=== PATIENT | female | born 1955 | race Caucasian/White ===

== ENCOUNTER 2020-09-27 22:36 | Emergency (ER) | payer OTHER ==
[2020-09-27] MEDS ORDERED: ONDANSETRON 4 MG/2 ML VIAL ONE (23:38)
[2020-09-27] MEDS ORDERED: MORPHINE 4 MG/ML SYR ONE (23:38)
--- NOTE | 2020-09-28 00:39 | EDPHYS ---
Physician Documentation [facility] Name: Daniela Anthony Age: 65 yrs Sex: Female : 1955 Arrival Date: 09/27/2020 Time: 22:39 Bed 26 Private MD: ED Physician Shailesh Ashby HPI: 09/27 23:25 This 65 yrs old Female presents to ER via EMS with complaints of Fall Injury. mh7 23:25 Details of fall: The patient fell from a height, down approximately 3 stairs. Onset: mh7 The symptoms/episode began/occurred just prior to arrival, today. Associated injuries: The patient sustained right shoulder, decreased range of motion, painful injury. Severity of symptoms: At their worst the symptoms were moderate, earlier today, in the emergency department the symptoms are unchanged. Historical: - Allergies: 22:43 tramadol; em - PMHx: 22:43 Diabetes - NIDDM; Cirrhosis; em - PSHx: 22:43 Hysterectomy; ; em - Immunization history:: Adult Immunizations. - Immunization history: Last tetanus immunization: - up to date. - Social history:: Smoking status: Patient denies any tobacco usage or history of. ROS: 23:25 Constitutional: Negative for fever, chills, and weight loss, Eyes: Negative for injury, mh7 pain, redness, and discharge, ENT: Negative for injury, pain, and discharge, Neck: Negative for injury, pain, and swelling, Cardiovascular: Negative for chest pain, palpitations, and edema, Respiratory: Negative for shortness of breath, cough, wheezing, and pleuritic chest pain, Abdomen/GI: Negative for abdominal pain, nausea, vomiting, diarrhea, and constipation, Back: Negative for injury and pain, : Negative for injury, bleeding, discharge, and swelling, Skin: Negative for injury, rash, and discoloration, Neuro: Negative for headache, weakness, numbness, tingling, and seizure, Psych: Negative for depression, anxiety, suicide ideation, homicidal ideation, and hallucinations, Allergy/Immunology: Negative for hives, rash, and allergies, Endocrine: Negative for neck swelling, polydipsia, polyuria, polyphagia, and marked weight changes, Hematologic/Lymphatic: Negative for swollen nodes, abnormal bleeding, and unusual bruising. Exam: 23:25 Constitutional: This is a well developed, well nourished patient who is awake, alert, mh7 and in no acute distress. Head/Face: Normocephalic, atraumatic. Eyes: Pupils equal round and reactive to light, extra-ocular motions intact. Lids and lashes normal. Conjunctiva and sclera are non-icteric and not injected. Cornea within normal limits. Periorbital areas with no swelling, redness, or edema. Neck: Trachea midline, no thyromegaly or masses palpated, and no cervical lymphadenopathy. Supple, full range of motion without nuchal rigidity, or vertebral point tenderness. No Meningismus. Chest/axilla: Normal chest wall appearance and motion. Nontender with no deformity. No lesions are appreciated. Cardiovascular: Regular rate and rhythm with a normal S1 and S2. No gallops, murmurs, or rubs. Normal PMI, no JVD. No pulse deficits. Respiratory: Lungs have equal breath sounds bilaterally, clear to auscultation and percussion. No rales, rhonchi or wheezes noted. No increased work of breathing, no retractions or nasal flaring. Abdomen/GI: Soft, non-tender, with normal bowel sounds. No distension or tympany. No guarding or rebound. No evidence of tenderness throughout. Back: No spinal tenderness. No costovertebral tenderness. Full range of motion. Skin: Warm, dry with normal turgor. Normal color with no rashes, no lesions, and no evidence of cellulitis. 23:25 Neuro: Awake and alert, GCS 15, oriented to person, place, time, and situation. Cranial nerves II-XII grossly intact. Motor strength 5/5 in all extremities. Sensory grossly intact. Cerebellar exam normal. Normal gait. Psych: Awake, alert, with orientation to person, place and time. Behavior, mood, and affect are within normal limits. 23:25 Musculoskeletal/extremity: Extremities: noted in the right shoulder: decreased ROM, pain, tenderness, ROM: limited active range of motion, in the right shoulder, limited passive range of motion, in the right shoulder, Circulation is intact in all extremities. Sensation intact. Compartment Syndrome exam of affected extremity: is normal. no numbness, no tingling, no sensation deficit, no palor, no weak pulses, Joints: the right shoulder displays limited range of motion, pain at rest, painful range of motion, tenderness, Weight bearing: able to fully bear weight, without difficulty, Tendon exam: specific tendon testing normal through active and passive range of motion Vital Signs: 22:39 BP 129 / 72; Pulse 83; Resp 18; Pulse Ox 97% on R/A; Weight 75.75 kg; Height 5 ft. 5 em in. (165.10 cm); Pain 01/12; 09/28 00:56 BP 124 / 70; Pulse 80; Resp 17; Pulse Ox 98% on R/A; mh5 09/27 22:39 Body Mass Index 27.79 (75.75 kg, 165.10 cm) em [place] Coma Score: 09/27 22:39 Eye Response: spontaneous(4). Verbal Response: oriented(5). Motor Response: obeys em commands(6). Total: 15. Trauma Score (Adult): 22:39 Eye Response: spontaneous(1); Verbal Response: oriented(1); Motor Response: obeys em commands(2); Systolic BP: > 89 mm Hg(4); Respiratory Rate: 10 to 29 per min(4); Don Score: 15; Trauma Score: 12 MDM: 09/28 00:35 Differential diagnosis: abrasion, closed head injury, contusion, fracture. Data [facility] reviewed: vital signs, nurses notes, EMS record, radiologic studies, CT scan, plain films. Counseling: I had a detailed discussion with the patient and/or guardian regarding: the historical points, exam findings, and any diagnostic results supporting the discharge/admit diagnosis, radiology results, the need for outpatient follow up, a orthopedic surgeon, to return to the emergency department if symptoms worsen or persist or if there are any questions or concerns that arise at home. Response to treatment: the patient's symptoms have markedly improved after treatment. 00:38 Patient medically screened. [facility] 09/27 23:10 Order name: Shoulder Right (2 View) XRAY [facility] 09/27 23:10 Order name: CT Head C Spine [facility] 09/28 00:30 Order name: Shoulder Immobilizer; Complete Time: 00:55 [facility] Administered Medications: 09/27 23:11 Drug: morphine 4 mg Route: IVP; Site: left antecubital; 09/28 01:32 Follow up: Response: No adverse reaction; Marked relief of symptoms; Pain is decreased 09/27 23:11 Drug: Zofran (Ondansetron) 4 mg Route: IVP; Site: left antecubital; 09/28 01:32 Follow up: Response: No adverse reaction em 01:41 Drug: Ione (HYDROcodone-acetaminophen) 5 mg-325 mg 1 tabs Route: PO; em 01:41 Follow up: Response: Medication administered at discharge. em Disposition: 09/28/20 00:38 Discharged to Home. Impression: Fall (on) (from) other stairs and steps - Mechanical, Proximal Humerus Fracture, Right. - Condition is Stable. - Discharge Instructions: How to Use a Shoulder Immobilizer, Humerus Fracture Treated With Immobilization, [id number], Fall Prevention in the Home, [id number]. - Prescriptions for Tylenol- Codeine #3 300-30 mg Oral Tablet - take 2 tablet by ORAL route every 6 hours As needed; 30 tablet. - Medication Reconciliation Form, Thank You Letter, Antibiotic Education, Prescription Opioid Use form. - Follow up: Private Physician; When: 2 - 3 days; Reason: Worsening of condition, Recheck today's complaints, Continuance of care, Re-evaluation by your physician. Follow up: Vamsi Rubio MD; When: 2 - 3 days; Reason: Worsening of condition, Recheck today's complaints. - Problem is new. - Symptoms have improved. Signatures: Dispatcher [employer] Alec Urbano RN RN em Umadhay, Felix, RN RN fu Holmes, Maurice, MD MD mh7 Corrections: (The following items were deleted from the chart) 01:42 00:38 09/28/2020 00:38 Discharged to Home. Impression: Fall (on) (from) other stairs em and steps - Mechanical; Proximal Humerus Fracture, Right. Condition is Stable. Forms are Medication Reconciliation Form, Thank You Letter, Antibiotic Education, Prescription Opioid Use. Follow up: Private Physician; When: 2 - 3 days; Reason: Worsening of condition, Recheck today's complaints, Continuance of care, Re-evaluation by your physician. Follow up: Vamsi Rubio; When: 2 - 3 days; Reason: Worsening of condition, Recheck today's complaints. Problem is new. Symptoms have improved. 7
--- NOTE | 2020-09-28 00:39 | ER ---
Nurse's Notes [facility] Name: Daniela Anthony Age: 65 yrs Sex: Female : 1955 Arrival Date: 09/27/2020 Time: 22:39 Bed 26 Private MD: Diagnosis: Fall (on) (from) other stairs and steps-Mechanical;Proximal Humerus Fracture, Right Presentation: 09/27 22:39 Chief complaint: EMS states: stepped off the second step of the RV and fell, landed on em the right shoulder then the left shoulder, reports hitting head after hitting shoulders, denies LOC. Care prior to arrival: None. Mechanism of Injury: Fall down 2 steps. Trauma event details: Injury occurred in the [facility], Injury occurred: at home. 22:39 Acuity: GISELLA 3 em 22:39 Method Of Arrival: EMS: [facility] em 22:39 Coronavirus screen: Client denies travel out of the [place] in the last 14 days. Ebola em Screen: Patient negative for fever greater than or equal to 101.5 degrees Fahrenheit, and additional compatible Ebola Virus Disease symptoms Patient denies exposure to infectious person. Patient denies travel to an Ebola-affected area in the 21 days before illness onset. No symptoms or risks identified at this time. Initial Sepsis Screen: Does the patient meet any 2 criteria? No. Patient's initial sepsis screen is negative. Does the patient have a suspected source of infection? No. Patient's initial sepsis screen is negative. Risk Assessment: Do you want to hurt yourself or someone else?. Onset of symptoms was September 28, 2020. Historical: - Allergies: 22:43 tramadol; em - PMHx: 22:43 Diabetes - NIDDM; Cirrhosis; em - PSHx: 22:43 Hysterectomy; ; em - Immunization history:: Adult Immunizations. - Immunization history: Last tetanus immunization: - up to date. - Social history:: Smoking status: Patient denies any tobacco usage or history of. Screenin:39 Abuse screen: Denies threats or abuse. Nutritional screening: No deficits noted. em Tuberculosis screening: No symptoms or risk factors identified. Fall risk None identified. Primary Survey: :39 NO uncontrolled hemorrhage observed. A: The patient is alert. Airway: patent. em Breathing/Chest: Respiratory pattern: regular, Respiratory effort: spontaneous. Circulation: Skin color: pink, Skin temperature: warm. Disability Alert. Exposure/Environment: There is no evidence of uncontrolled external bleeding. Assessment: 23:00 General: Appears uncomfortable, Behavior is cooperative, appropriate for age, Denies fu fever, feeling ill, fatigue, chills. Pain: Complains of pain in right shoulder Pain does not radiate. Pain currently is 10 out of 10 on a pain scale. Pain began 2 hours ago. Is continuous, Aggravated by movement. Neuro: Level of Consciousness is awake, alert, obeys commands, Oriented to person, place, time, situation, Weakness in right arm(s) Speech is normal, Facial symmetry appears normal. Cardiovascular: Denies chest pain, nausea, vomiting. Respiratory: Respiratory effort is even, unlabored, Respiratory pattern is regular. Derm: tenderness to right shoulder. Musculoskeletal: limited ROM to right arm Reports pain in right shoulder Pain is 10 out of 10 on a pain scale. 09/28 01:32 Reassessment: pt request something for pain before being discharged, Dr. Ashby em notified, received VO for Tolstoy 5 mg PO x 1. Vital Signs: 09/27 22:39 BP 129 / 72; Pulse 83; Resp 18; Pulse Ox 97% on R/A; Weight 75.75 kg; Height 5 ft. 5 em in. (165.10 cm); Pain 01/12; 09/28 00:56 BP 124 / 70; Pulse 80; Resp 17; Pulse Ox 98% on R/A; mh5 09/27 22:39 Body Mass Index 27.79 (75.75 kg, 165.10 cm) em [place] Coma Score: 09/27 22:39 Eye Response: spontaneous(4). Verbal Response: oriented(5). Motor Response: obeys em commands(6). Total: 15. Trauma Score (Adult): 22:39 Eye Response: spontaneous(1); Verbal Response: oriented(1); Motor Response: obeys em commands(2); Systolic BP: > 89 mm Hg(4); Respiratory Rate: 10 to 29 per min(4); Don Score: 15; Trauma Score: 12 ED Course: 22:39 Patient arrived in ED. em 22:39 Patient has correct armband on for positive identification. em 22:39 Arm band placed on. em 22:39 Patient maintains SpO2 saturation greater than 95% on room air. em 22:41 Triage completed. em 23:02 Shailesh Ashby MD is Attending Physician. mh7 23:05 Inserted saline lock: 20 gauge in left antecubital area, using aseptic technique. fu 23:08 Puma Vargas RN is Primary Nurse. fu 23:58 CT Head C Spine In Process Unspecified. EDMS 09/28 00:10 Shoulder Right (2 View) XRAY In Process Unspecified. EDMS 00:37 Vamsi Rubio MD is Referral Physician. mh7 00:55 Shoulder immobilizer applied on right shoulder. 5 01:23 No provider procedures requiring assistance completed. em 01:42 IV discontinued, intact, bleeding controlled, No redness/swelling at site. Pressure em dressing applied. Administered Medications: 09/27 23:11 Drug: morphine 4 mg Route: IVP; Site: left antecubital; fu 09/28 01:32 Follow up: Response: No adverse reaction; Marked relief of symptoms; Pain is decreased em 09/27 23:11 Drug: Zofran (Ondansetron) 4 mg Route: IVP; Site: left antecubital; fu 09/28 01:32 Follow up: Response: No adverse reaction em 01:41 Drug: Tolstoy (HYDROcodone-acetaminophen) 5 mg-325 mg 1 tabs Route: PO; em 01:41 Follow up: Response: Medication administered at discharge. em Outcome: 00:38 Discharge ordered by . 7 01:41 Discharged to home via wheelchair, with family. em 01:41 Condition: stable 01:41 Discharge instructions given to patient, family, Instructed on discharge instructions, follow up and referral plans. medication usage, Demonstrated understanding of instructions, follow-up care, medications, splint care, Prescriptions given X 1. 01:42 Patient left the ED. em Signatures: Dispatcher [employer] [facility] Alec Harris RN RN em Martinez, Maria [facility] Puma Vargas, Shailesh Jung RN, MD MD [facility]
[2020-09-28] MEDS ORDERED: HYDROCODONE/APAP 5/325 MG TAB ONE (01:54)
[2020-09-28 02:10] VITALS: BP 124/70; O2SAT 98
--- NOTE | 2020-09-28 08:35 | RAD REPORT ---
EXAM DESCRIPTION: Shoulder Right 2 View - 09/28/2020 12:10 am CLINICAL HISTORY: trauma, fall with arm pain COMPARISON: No comparisons TECHNIQUE: Internal and external rotation views of the right shoulder were obtained. FINDINGS: Comminuted slightly oblique fracture is present through the proximal shaft of the humerus 1-2 cm distal to the surgical neck. There is displacement and overlap of the fracture fragments appro ximately 1 centimeter. AC joint is normal in appearance. No abnormal calcifications. Pathologic etio logy is not suspected. IMPRESSION: Comminuted proximal right shaft fracture as detailed.
--- NOTE | 2020-09-28 20:13 | RAD REPORT ---
EXAM DESCRIPTION: CT - [id number] - 09/28/2020 6:34 am CLINICAL HISTORY: Trauma/pain COMPARISON: None available TECHNIQUE: Axial CT of the head obtained from the skull apex to the skull base without contrast. Axi al CT images of the cervical spine obtained from the skull base through the thoracic inlet. Sagittal and coronal reformatted images available. This exam was performed according to our departmental dose- optimization program, which includes automated exposure control, adjustment of the mA and/or kV accor ding to patient size and/or use of iterative reconstruction technique. FINDINGS: CT head: No acute intracranial hemorrhage identified. No mass, mass effect, shift of the midline, abnormal ext ra-axial fluid collection or CT evidence of acute ischemic change identified. Mild enlargement of the ventricular system and sulcal spaces compatible with atrophy. Scattered hypodensities in the supra tentorial white matter is again made of sequela of chronic small vessel ischemic change. Carotid shanna ry atherosclerosis. The visualized paranasal sinuses and the mastoids are clear. No skull fracture identified. Visual ized orbits and globes are unremarkable. Cervical CT: Straightening of the cervical lordosis may be secondary to patient positioning. The atlantoaxial, a tlantodental, and occipitoatlantal intervals are preserved. No fracture identified. Vertebral body height preserved. Prevertebral soft tissues are unremarkable. Mild to moderate multilevel loss of intervertebral disc and endplate spondylosis, facet arthropathy, and uncovertebral spurring. Spurring of the atlantodental articulation. Visualized skull base is intact. No fracture of the visualized facial bones. Visualized mastoid air c ells and paranasal sinuses are well aerated. Visualized thyroid is unremarkable. No cervical lymphadenopathy. No pneumothorax in the visualized lung apices. IMPRESSION: 1. No acute intracranial abnormality. 2. No acute fracture or subluxation of the cervical spine. 3. Multilevel degenerative change of the cervical spine. Electronically signed by: Rick Wu 09/28/2020 12:15 AM CDT Due to temporary technical issues with the PACS/Fluency reporting system, reports are being signed by the in house radiologists without review as a courtesy to insure prompt reporting. The interpreting radiologist is fully responsible for the content of the report
== END 2020-09-28 01:42 | disposition home or self-care (01) ==
LOC: ER 22:36
DX: S42.201A Unspecified fracture of upper end of right humerus, initial encounter for closed fracture (principal); W10.9XXA Fall (on) (from) unspecified stairs and steps, initial encounter; Z88.5 Allergy status to narcotic agent
CPT/HCPCS: 70450; 72125; 73030; J2405; 96374; 96375; 99284